=== PATIENT | female | born 1970 | race Caucasian/White ===

== ENCOUNTER 2021-07-14 21:44 | Inpatient (IN) | payer OTHER ==
[~2021-07-14] VITALS: Ht 172.7 cm; Wt 84.9 kg
[~2021-07-14 21:44] MED LIST: AMOXICILLIN500 MG PO; VICODIN ES 7501 TAB PO
[2021-07-14 21:53] VITALS: BP 114/58
[2021-07-15] VITALS (9 sets, daily range): BP systolic 101–123; BP diastolic 58–70
[2021-07-15 00:04] LABS: MEAN CELL VOLUME 93.3 fl (81.0-99.0); MEAN CORPUSCULAR HGB 31.2 pg (27.0-31.0); MEAN CORPUSCULAR HGB CONC 33.4 g/dl (33.0-37.0); MEAN PLATELET VOLUME 10.3 fl (9.6-12.3); PLATELET COUNT AUTOMATED 302 10*3/uL (130-400); RED BLOOD COUNT 3.75 10*6/uL (4.10-5.10); RED CELL DISTRI WIDTH 13.1 % (0-14.5); WHITE BLOOD COUNT 7.7 10*3/uL (4.8-10.8)
[2021-07-15 00:18] LABS: ALBUMIN 2.8 gm/dl (3.1-4.5); ALKALINE PHOSPHATASE 81 U/L (45-117); BUN 8 mg/dl (7-24); CHLORIDE 102 mmol/L (98-107); CPK 281 U/L (26-192); CREATININE 0.82 mg/dL (0.55-1.02); LDH 339 U/L (84-246); POTASSIUM 3.2 mmol/L (3.5-5.1); SGOT/AST 70 IU/L (3-35); SGPT/ALT 69 U/L (12-78); SODIUM 136 mmol/L (136-145); TOTAL PROTEIN 6.9 gm/dL (6.4-8.2)
[2021-07-15 00:23] LABS: PLATELET SUFFICIENCY NORMAL (NORMAL); TOTAL CELLS COUNTED 100 #CELLS
[2021-07-15 00:55] LABS: BILIRUBIN Negative (Negative); BLOOD Negative (Negative); CLARITY Clear (Clear); COLOR Yellow (Yellow); GLUCOSE Negative (Negative); KETONE Trace (Negative); LEUKO ESTERASE Negative (Negative); NITRITE Negative (Negative); SPECIFIC GRAVITY 1.015 (1.001-1.030)
[2021-07-15 01:10] LABS: BACTERIA 1+
[2021-07-15 06:30] LABS: BASO % 0.2 % (0.0-1.0); EOS % 0.2 % (1.0-4.0); HEMATOCRIT 34.4 % (37.0-47.0); LYMPH # 0.8 10*3/uL (1.3-4.4); LYMPH % 11.5 % (27.0-41.0); MEAN CORPUSCULAR HGB 31.4 pg (27.0-31.0); MEAN CORPUSCULAR HGB CONC 33.7 g/dl (33.0-37.0); MEAN PLATELET VOLUME 10.3 fl (9.6-12.3); MONO # 0.6 10*3/uL (0.1-1.0); MONO % 9.1 % (3.0-9.0); NEUT # 5.1 10*3/uL (2.3-7.9); NEUT % 77.9 % (47.0-73.0); PLATELET COUNT AUTOMATED 301 10*3/uL (130-400); RED CELL DISTRI WIDTH 13.2 % (0-14.5); WHITE BLOOD COUNT 6.5 10*3/uL (4.8-10.8)
[2021-07-15 06:58] LABS: ALBUMIN 2.7 gm/dl (3.1-4.5); ALKALINE PHOSPHATASE 80 U/L (45-117); BUN 6 mg/dl (7-24); CHLORIDE 106 mmol/L (98-107); CREATININE 0.63 mg/dL (0.55-1.02); LDH 338 U/L (84-246); POTASSIUM 3.1 mmol/L (3.5-5.1); SGOT/AST 66 IU/L (3-35); SGPT/ALT 67 U/L (12-78); SODIUM 140 mmol/L (136-145); TOTAL PROTEIN 6.9 gm/dL (6.4-8.2)
[2021-07-15 07:09] LABS: BETA-HCG, QUANT < 1.0 mIU/mL (1-3)
[2021-07-16] VITALS: BP 119/68
[2021-07-16 06:57] LABS: BASO % 0.1 % (0.0-1.0); HEMATOCRIT 36.8 % (37.0-47.0); LYMPH # 0.6 10*3/uL (1.3-4.4); LYMPH % 6.7 % (27.0-41.0); MEAN CELL VOLUME 94.6 fl (81.0-99.0); MEAN CORPUSCULAR HGB 31.4 pg (27.0-31.0); MEAN CORPUSCULAR HGB CONC 33.2 g/dl (33.0-37.0); MEAN PLATELET VOLUME 10.3 fl (9.6-12.3); MONO # 0.7 10*3/uL (0.1-1.0); MONO % 7.6 % (3.0-9.0); NEUT # 7.3 10*3/uL (2.3-7.9); NEUT % 84.7 % (47.0-73.0); PLATELET COUNT AUTOMATED 372 10*3/uL (130-400); RED BLOOD COUNT 3.89 10*6/uL (4.10-5.10); RED CELL DISTRI WIDTH 13.2 % (0-14.5); WHITE BLOOD COUNT 8.6 10*3/uL (4.8-10.8)
[2021-07-16 07:04] LABS: BUN 6 mg/dl (7-24); CHLORIDE 108 mmol/L (98-107); CREATININE 0.54 mg/dL (0.55-1.02); LDH 330 U/L (84-246); POTASSIUM 3.7 mmol/L (3.5-5.1); SODIUM 139 mmol/L (136-145)
[2021-07-16 08:00] VITALS: BP 113/71
[2021-07-16 12:00] VITALS: BP 117/69
[2021-07-16 16:00] VITALS: BP 106/59
[2021-07-16 20:00] VITALS: BP 122/73
[2021-07-17] VITALS: BP 105/56
[2021-07-17 07:03] LABS: BASO % 0.1 % (0.0-1.0); HEMATOCRIT 37.8 % (37.0-47.0); LYMPH # 0.9 10*3/uL (1.3-4.4); LYMPH % 8.9 % (27.0-41.0); MEAN CELL VOLUME 94.5 fl (81.0-99.0); MEAN CORPUSCULAR HGB CONC 32.8 g/dl (33.0-37.0); MEAN PLATELET VOLUME 9.8 fl (9.6-12.3); MONO # 0.7 10*3/uL (0.1-1.0); MONO % 6.9 % (3.0-9.0); NEUT % 82.7 % (47.0-73.0); PLATELET COUNT AUTOMATED 456 10*3/uL (130-400); WHITE BLOOD COUNT 9.7 10*3/uL (4.8-10.8)
[2021-07-17 07:32] LABS: BUN 10 mg/dl (7-24); CHLORIDE 107 mmol/L (98-107); CREATININE 0.66 mg/dL (0.55-1.02); LDH 318 U/L (84-246); POTASSIUM 3.7 mmol/L (3.5-5.1); SODIUM 141 mmol/L (136-145)
[2021-07-17 08:00] VITALS: BP 103/61
[2021-07-17 12:00] VITALS: BP 102/66
[2021-07-17] MEDS ORDERED: DECADRON4 MG PO (14:31)
== END 2021-07-17 16:20 | disposition home or self-care (01) | DRG 177 ==
LOC: ED 21:44 → 4E 07-15 05:23 → EDHOLD 07-15 05:23 → 4E 07-15 14:13
PROVIDERS: Emergency Medicine; Hospitalist; Internal Medicine; ADMIT Internal Medicine; ATTEND Internal Medicine
DX: U07.1 COVID-19 (principal); J12.82 Pneumonia due to coronavirus disease 2019; J96.01 Acute respiratory failure with hypoxia; E44.0 Moderate protein-calorie malnutrition; E87.6 Hypokalemia; D64.9 Anemia, unspecified; R73.9 Hyperglycemia, unspecified; Z87.891 Personal history of nicotine dependence; Z68.23 Body mass index [BMI] 23.0-23.9, adult

== ENCOUNTER → 2021-08-05 | Outpatient (CLI) | payer OTHER ==
[~2021-08-05] MED LIST changes: +DECADRON4 MG PO
== END | disposition home or self-care (01) ==
LOC: RESCLI 00:08
PROVIDERS: ATTEND Internal Medicine
DX: U07.1 COVID-19 (principal); Z12.4 Encounter for screening for malignant neoplasm of cervix; F41.9 Anxiety disorder, unspecified; G47.00 Insomnia, unspecified

== ENCOUNTER → 2021-08-09 | Outpatient (CLI) | payer OTHER | END | disposition home or self-care (01) | LOC: COVID19 15:27 | PROVIDERS: ATTEND Student in an Organized Health Care Education/Training Program | DX: Z11.52 Encounter for screening for COVID-19 (principal) ==

== ENCOUNTER 2022-06-02 02:24 | Emergency (ER) | payer OTHER ==
[~2022-06-02] VITALS: Ht 175.2 cm; Wt 86.2 kg
[2022-06-02 03:14] LABS: BASO # 0.1 10*3/uL (0.0-0.1); BASO % 0.7 % (0.0-1.0); EOS # 0.2 10*3/uL (0.0-0.4); EOS % 2.2 % (1.0-4.0); HEMATOCRIT 38.1 % (37.0-47.0); LYMPH # 0.8 10*3/uL (1.3-4.4); LYMPH % 9.3 % (27.0-41.0); MEAN CORPUSCULAR HGB 31.5 pg (27.0-31.0); MEAN CORPUSCULAR HGB CONC 32.8 g/dl (33.0-37.0); MONO # 0.5 10*3/uL (0.1-1.0); NEUT # 7.4 10*3/uL (2.3-7.9); NEUT % 81.5 % (47.0-73.0); PLATELET COUNT AUTOMATED 296 10*3/uL (130-400); RED BLOOD COUNT 3.97 10*6/uL (4.10-5.10); RED CELL DISTRI WIDTH 14.3 % (0-14.5)
[2022-06-02 03:34] LABS: ALKALINE PHOSPHATASE 45 U/L (45-117); BUN 3 mg/dl (7-24); CHLORIDE 109 mmol/L (98-107); CREATININE 0.45 mg/dL (0.55-1.02); POTASSIUM 3.9 mmol/L (3.5-5.1); SGOT/AST 28 IU/L (3-35); SGPT/ALT 19 U/L (12-78); SODIUM 139 mmol/L (136-145); TOTAL PROTEIN 5.8 gm/dL (6.4-8.2)
== END 2022-06-02 05:26 | disposition home or self-care (01) ==
LOC: ED 02:24
PROVIDERS: Internal Medicine
DX: B34.9 Viral infection, unspecified (principal); Z20.822 Contact with and (suspected) exposure to COVID-19; E46 Unspecified protein-calorie malnutrition; R79.82 Elevated C-reactive protein (CRP); R11.2 Nausea with vomiting, unspecified; Z79.899 Other long term (current) drug therapy; Z90.49 Acquired absence of other specified parts of digestive tract; Z98.890 Other specified postprocedural states; Z87.891 Personal history of nicotine dependence

== ENCOUNTER 2023-04-15 13:44 | Emergency (ER) | payer OTHER ==
[~2023-04-15] VITALS: Ht 175.2 cm; Wt 90.7 kg
== END 2023-04-15 16:51 | disposition home or self-care (01) ==
LOC: ED 13:44
DX: M25.571 Pain in right ankle and joints of right foot (principal); Z90.49 Acquired absence of other specified parts of digestive tract; Z98.890 Other specified postprocedural states; Z87.891 Personal history of nicotine dependence